=== PATIENT | female | born 1980 | race Caucasian/White ===

== ENCOUNTER 2017-01-29 09:25 | Emergency (ER) | payer BC ==
[2017-01-29 09:30] VITALS: BP 137/74
[2017-01-29] MEDS ORDERED: methylPREDNISolone Sodium Succinate 125 MG/2 ML SDV IVPUSH SCH (09:45)
[2017-01-29] MEDS ORDERED: diphenhydrAMINE 50 MG/ML SDV IVPUSH ONE (10:03)
--- NOTE | 2017-01-29 10:04 | EDM.PDOC ---
ED HPI GENERAL MEDICAL PROBLEM - General Chief Complaint: Allergic Reaction Stated Complaint: RASH, ? ALLERGIC REACTION Time Seen by Provider: 01/29/17 09:54 Source of Information: Reports: Patient History Limitations: Reports: No Limitations - History of Present Illness INITIAL COMMENTS - FREE TEXT/NARRATIVE: Patient presents with hives/rash on her face and neck. She noticed puffiness around her eyes at 3:00 this morning and erythema and rash under left eye. She took a children's benadryl 25 mg. It has worsened so she came to ER. Three days ago she had noticed a mild hive-like rash around her eyes that didn't progress like this. She denies any tongue or throat swelling and no dyspnea. She can't think of anything she could be having a reaction too. No new medications, detergents, lotions, sunscreens, clothes, foods. She isn't aware of any chronic or serious medical issues. - Related Data Allergies Allergy/AdvReac Type Severity Reaction Status Date / Time Penicillins Allergy Cannot Verified 01/29/17 09:34 Remember Sulfa (Sulfonamide Allergy Cannot Verified 01/29/17 09:34 Antibiotics) Remember Home Meds: Home Meds Norgestimate-Ethinyl Estradiol [Awm-Tp-Likzcy Tablet] 1 tab PO DAILY 01/29/17 [ History] Past Medical History HEENT History: Reports: Impaired Vision Cardiovascular History: Reports: Heart Murmur [employer] History: Reports: Other Dermatologic History: history of hives on legs one year ago - etiology unknown - Infectious Disease History Infectious Disease History: Reports: Chicken Pox - Past Surgical History HEENT Surgical History: Reports: Oral Surgery Cardiovascular Surgical History: Reports: None Dermatological Surgical History: Reports: None Social & Family History - Tobacco Use Smoking Status *Q: Never Smoker - Caffeine Use Caffeine Use: Reports: Coffee - Recreational Drug Use Recreational Drug Use: No ED ROS ALLERGIC REACTION - Review of Systems Review Of Systems: See Below Constitutional: Denies: Fever, Chills, Weakness, Decreased Appetite HEENT: Denies: Throat Pain, Throat Swelling, Vision Change Respiratory: Denies: Shortness of Breath, Wheezing, Cough Cardiovascular: Denies: Chest Pain, Edema, Lightheadedness, Syncope Endocrine: Denies: Fatigue GI/Abdominal: Denies: Abdominal Pain, Decreased Appetite, Difficulty Swallowing , Nausea, Vomiting : Denies: Dysuria, Flank Pain Musculoskeletal: Reports: No Symptoms Skin: Denies: Cyanosis, Jaundice, Mottled, Pallor, Diaphoresis Neurological: Denies: Confusion, Dizziness, Headache Psychiatric: Denies: Agitation, Anxiety, Confusion ED EXAM GENERAL NO PERIP PULSE - Physical Exam Exam: See Below Exam Limited By: No Limitations General Appearance: Alert, WD/WN, No Apparent Distress Eye Exam: Bilateral Eye: EOMI, Normal Inspection, PERRL Ears: Normal External Exam, Normal Canal, Hearing Grossly Normal, Normal TMs Nose: Normal Inspection, Normal Mucosa, No Blood. No: Nasal Swelling, Nasal Drainage Throat/Mouth: Normal Inspection, Normal Lips, Normal Teeth, Normal Gums, Normal Oropharynx, Normal Voice, No Airway Compromise Head: Atraumatic, Normocephalic Neck: Normal Inspection, Supple, Non-Tender, Full Range of Motion Respiratory/Chest: No Respiratory Distress, Lungs Clear, Normal Breath Sounds, No Accessory Muscle Use Cardiovascular: Normal Peripheral Pulses, Regular Rate, Rhythm, No Edema, No Murmur GI/Abdominal: Normal Bowel Sounds, Soft, Non-Tender, No Organomegaly, No Distention Back Exam: No: CVA Tenderness (L), CVA Tenderness (R) Extremities: Normal Inspection, Normal Range of Motion, Non-Tender, No Pedal Edema Neurological: Alert, Oriented, Normal Cognition, No Motor/Sensory Deficits Psychiatric: Normal Affect, Normal Mood Skin Exam: Warm, Dry, Intact, Erythema (with moderate swelling under eyes, cheeks and face in general; erythema also involves forehead and anterior neck, ending abruptly at the anterior base of the neck and midline below the ears; appearance is of confluence of hives), Rash. No: Cyanosis, Diaphoretic, Ecchymosis, Excoriations, Jaundice, Mottled, Pallor, Petechiae, Wound/Incision, Zoster-Like Rash Course - Vital Signs Last Recorded V/S: Last Vital Signs Temp 99.0 F 01/29/17 09:27 Pulse 84 01/29/17 09:27 Resp 18 01/29/17 09:27 BP 137/74 01/29/17 09:27 Pulse Ox 99 01/29/17 09:27 - Orders/Labs/Meds Orders: Active Orders 24 hr Category Date Time Status methylPREDNISolone Sod Succ [Solu-MEDROL] Med 01/29/17 09:45 Active 125 mg IVPUSH ONETIME Medication Orders Methylprednisolone Sodium Succinate (Solu-Medrol) 125 mg IVPUSH ONETIME MANOLO Last Admin: 01/29/17 09:35 Dose: 125 mg Meds: Medications Generic Name Dose Route Start Last Admin Trade Name Soledad PRN Reason Stop Dose Admin Methylprednisolone Sodium Succinate 125 mg 01/29/17 09:45 01/29/17 09:35 Solu-Medrol IVPUSH 125 mg ONETIME MANOLO Administration - Re-Assessments/Exams Free Text/Narrative Re-Assessment/Exam: 01/29/17 10:24 Solu-medrol 125 mg IV and Benadryl 50 mg IV have been administered. Patient says the itch is gone and the swelling under her eyes is getting better. She tells me that she has been using Differin Gel for about a month and was thinking that couldn't be causing this since she has used it daily for a month and should have had the reaction. She does apply it only to the area that is red currently. We discussed that reactions don't usually occur immediately or with the first time a product is used and sometimes it can be delayed like this. I advised her to not use it until this rash is completely cleared up and then maybe try it in a small spot to test for reaction. 01/29/17 10:55 The rash continues to improve and patient feels ready to go home. She doesn't feel drowsy and looks very alert. As she lives only a couple blocks away, I feel she is safe to drive herself home. Patient is discharged in stable condition after discussing her treatment plan. Departure - Departure Time of Disposition: 10:51 Disposition: Home, Self-Care 01 Condition: Good Clinical Impression: Allergic reaction Qualifiers: Encounter type: initial encounter Qualified Code(s): T78.40XA - Allergy, unspecified, initial encounter - Discharge Information Forms: ED Department Discharge Additional Instructions: 1. Drink 8 cups of water daily. 2. Take the Medrol as directed. 3. Take Benadryl 25 mg twice daily as needed for itch or swelling. Claritin be used instead of Benadryl if drowsiness is an issue. 4. Don't use the Differin at least until this is cleared up, then can try it in a small area if you want. 5. Follow up with your PCP if this doesn't completely resolve in 2-3 days. Recheck sooner or return to ER if any worsening. - My Orders Last 24 Hours: My Active Orders 01/29/17 09:45 methylPREDNISolone Sod Succ [Solu-MEDROL] 125 mg IVPUSH ONETIME - Assessment/Plan Last 24 Hours: My Active Orders 01/29/17 09:45 methylPREDNISolone Sod Succ [Solu-MEDROL] 125 mg IVPUSH ONETIME
[2017-01-29 10:33] LABS: CHLORIDE,CL 104 mmol/L (98-115); SODIUM,NA 139 mmol/L (136-145)
== END 2017-01-29 11:00 | disposition home or self-care (01) ==
LOC: KA.ED 09:25
DX: T78.40XA Allergy, unspecified, initial encounter (principal); F17.210 Nicotine dependence, cigarettes, uncomplicated; Z88.0 Allergy status to penicillin; Z88.2 Allergy status to sulfonamides; H54.7 Unspecified visual loss; Z98.890 Other specified postprocedural states
CPT/HCPCS: 36415; 80048; 85025; 96374; 96375; 99283; J1200; J2930